=== PATIENT | male | born 1995 | race Two or more races ===

== ENCOUNTER 2018-04-08 07:22 | Emergency (ER) | payer OTHER ==
[~2018-04-08] VITALS: Ht 167.6 cm; Wt 81.6 kg
[2018-04-08] MEDS ORDERED: Azithromycin 250mg tab ORAL ONE (07:30)
[2018-04-08] MEDS ORDERED: Lidocaine 1% MPF 10mg/ml 5ml ONE (07:45)
--- NOTE | 2018-04-08 07:46 | Emergency Room Report ---
History of Present Illness General Chief Complaint: Male Urogenital Problems Source: Patient Present Illness HPI 22yoM with no medical problems presents with dysuria, as well as yellowish thick discharge from his urethra since yesterday. He denies rashes, ulcers, testicle pain, trauma, fevers, abdominal pain. He reports he has a new sex partner that he started having intercourse with a couple months ago. He Reports no other such symptoms ever in the past. Allergies: Coded Allergies: No Known Allergies (Unverified , 04/08/18) Patient History Past Medical History: see triage record Reviewed Nursing Documentation: PMH: Agreed; PSxH: Agreed Nursing Documentation-PMH Past Medical History: No Stated History Review of Systems Constitutional: Reports: no symptoms Gastrointestinal: Reports: no symptoms Genitourinary: Reports: see HPI Skin: Reports: no symptoms Allergic: Reports: no symptoms Physical Exam Vital Signs Date Time Temp Pulse Resp B/P (MAP) Pulse Ox O2 Delivery O2 Flow Rate FiO2 04/08/18 07:27 98.0 76 18 131/87 96 Room Air 98.1 General Appearance: well appearing, no apparent distress Head: normocephalic, atraumatic ENT: hearing grossly normal, normal voice Neck: full range of motion, supple Respiratory: no respiratory distress, speaking full sentences Cardiovascular #1: no edema Gastrointestinal: non tender, soft, non-distended Genitourinary: no CVA tenderness, penis normal, scrotum normal, other - No obvious urethral discharge with milking urethra even Musculoskeletal: normal inspection, gait/station normal Neurologic: alert, normal gait Psychiatric: judgement/insight normal, mood/affect normal Skin: no rash Lymphatic: no adenopathy Medical Decision Making Diagnostic Impression: Primary Impression: Urethritis Additional Impression: Sexually transmitted disease (STD) ER Course Patient was likely sexual transmitted infection from Chlamydia and gonorrhea, but exam normal today. Urinalysis sent for microscopy and reflux culture in case symptoms are non-sexually transmitted. GC and chlamydia DNA probes also sent. Patient treated with 250 mg Rocephin IM, as well as 1 g azithromycin by mouth. Patient also counseled extensively on avoiding intercourse with any partners for at least 2 weeks until after treatment. He was also instructed to inform all of his partners that they should be tested and treated for sexually transmitted infections as well before resuming intercourse. He was also informed that we do not perform HIV or syphilis testing here, and that he should go to the local health department or his primary care doctor for further testing before resuming intercourse, as well as instructing any and all partners to do the same before resuming intercourse. All of his questions were answered, and he seemed to understand and agree to complying with my instructions and recommendation today. Last Vital Signs Date Time Temp Pulse Resp B/P (MAP) Pulse Ox O2 Delivery O2 Flow Rate FiO2 04/08/18 07:27 98.0 76 18 131/87 96 Room Air 98.1 Disposition: HOME, SELF-CARE Condition: Stable Referrals: [facility],REFERRING (PCP) Patient Instructions: Urethritis, Adult, Sexually Transmitted Disease, Easy-to- Read MARION OLIVIA M.D Apr 08, 2018 07:46
[2018-04-08 07:53] LABS: APPEARANCE,URINE TURBID; BILIRUBIN, URINE NEGATIVE (NEGATIVE); GLUCOSE, URINE (UA) NEGATIVE (NEGATIVE); KETONES,URINE NEGATIVE (NEGATIVE); LEUKOCYTE ESTERASE ,URINE 2+ (NEGATIVE); NITRITE,URINE NEGATIVE (NEGATIVE); PH,URINE 6 (4.5-8.0); PROTEIN,URINE 1+ (NEGATIVE); UROBILINOGEN,URINE 1 MG/DL (0.0-1.0)
[2018-04-08 07:58] VITALS: BP 131/87
[2018-04-08] MEDS ORDERED: Lidocaine 1% MPF 10mg/ml 5ml INJ ONE (08:00)
[2018-04-08 08:04] LABS: COLOR,URINE YELLOW
== END 2018-04-08 07:56 | disposition home or self-care (01) ==
LOC: EMR 07:40
DX: N34.2 Other urethritis (principal); A64 Unspecified sexually transmitted disease
CPT/HCPCS: 81003; 87086; 87491; 96372; 99283; J0696; Q0144